=== PATIENT | male | born 1990 ===

== ENCOUNTER 2017-03-30 20:52 | Emergency (ER) | payer SELFPAY ==
[2017-03-30 21:05] VITALS: BMI 22.3
[2017-03-30] MEDS ORDERED: Lidocaine 2% w Epi 1:100,000 Inj IJ ONE (21:42)
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
[2017-03-30] MEDS ORDERED: Bacitracin 500 Units/gm Oint Foilpak UD ONE (22:33)
[2017-03-30 22:45] VITALS: BP 137/70; PULSE 88; RESP 20; TEMP 98.1
[2017-03-30 22:52] VITALS: O2SAT 99
== END 2017-03-30 23:10 | disposition home or self-care (01) ==
LOC: C.ER 20:52 → SUPCPDRO 20:52 → C.ER 23:10
DX: S51.812A Laceration without foreign body of left forearm, initial encounter (principal); W26.8XXA Contact with other sharp object(s), not elsewhere classified, initial encounter; Y93.89 Activity, other specified; Y92.89 Other specified places as the place of occurrence of the external cause

== ENCOUNTER 2017-04-13 18:23 | Emergency (ER) | payer SELFPAY ==
[2017-04-13 18:23] VITALS: BMI 22.3
[2017-04-13 18:31] VITALS: BP 134/75; PULSE 78; RESP 17; TEMP 98.2; O2SAT 99
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
== END 2017-04-13 19:15 | disposition home or self-care (01) ==
LOC: C.ER 18:23
DX: Z48.02 Encounter for removal of sutures (principal)